=== PATIENT | female | born 1955 | race Caucasian/White ===

== ENCOUNTER 2024-05-24 20:35 | Emergency (ER) | payer MEDICAID, SELFPAY ==
[2024-05-24 20:55] VITALS: PULSE 80; RESP 18; O2SAT 99; BMI 32.3
[2024-05-24 21:02] VITALS: BP 196/76; PULSE 71; RESP 19; TEMP 36.7; O2SAT 96
--- NOTE | 2024-05-24 22:10 | PD.EDFALL ---
ED Fall Injury RME/HPI General Chief Complaint: Extremity Injury, Upper Stated Complaint: UPPER ARM PAIN Time Seen by Provider: 05/24/24 22:01 Arrival date/time: 05/24/24 20:35 RME / HPI RME / HPI Narrative: Patient is a 68-year-old female with past medical history of type 2 diabetes, hypertension, hyperlipidemia, GERD, and osteoporosis who was brought in by ambulance to the ED on 05/24/2024 with right elbow and right groin pain after a ground-level fall at home when she missed a step going down the 2 steps in the foyer at home and landed on her right elbow. She thinks she hit her head but not very hard and denies any head pain. Denies loss of consciousness. Patient denies any dizziness, lightheadedness, or presyncope. Patient denies taking any blood thinners. Patient was given fentanyl 100 mcg and Zofran 4 mg en route. Pain at this time is rated 7/10. Patient lives at home with her and is independent with all ADLs. Daughter is present at the bedside at the time of evaluation. MD complaint: fall Fall from: standing Place fall occurred: home Loss of consciousness: none Prolonged down time: no Symptoms prior to fall: none Context: tripped/slipped Location of injury - extremities: Right: elbow Severity: severe Severity scale (1-10): 7 Related Data Allergies Allergy/AdvReac Type Severity Reaction Status Date / Time No Known Allergies Allergy Verified 05/24/24 20:55 Review of Systems Review of Systems Systems Reviewed: All systems reviewed, normal except as documented Past Medical History Past Medical History Comments PMH COMMENT: Past Medical History: Type 2 diabetes, hyperlipidemia, hypertension, GERD, osteoporosis Family History: Stroke in brother, emphysema and lung cancer in father, ovarian cancer in mother Surgical History: Left hip open reduction internal fixation Social History: Denies history of smoking, denies current alcohol use, denies recreational drug use Current Medications: Lisinopril 20 mg qday, atorvastatin 40 mg qday, glipizide 10 mg qday, omeprazole 40 mg qday, calcium supplement (Source: Patient written medication list) Allergies: No known drug allergies ED Exam Narrative Physical exam: Physical Exam General: Awake and in no acute distress. Conversational and non-toxic appearing. HEENT: Normocephalic, atraumatic, mucous membranes moist. Heart: Regular rate and rhythm, no murmurs. Lungs: Clear to auscultation with no wheezing or crackles. Abdomen: Soft, nondistended, nontender, positive bowel sounds. ?No guarding or rebound tenderness. Neurologic: Alert and oriented x3, no gross neurological deficit, and patient able to move all 4 extremities. No loss of sensation in the right elbow, forearm, or hand. Extremities: Right arm is in a sling. Right elbow with deformity laterally. Right shoulder is adducted and internally rotated. Cannot extend forearm secondary to pain. No tenderness to palpation of right shoulder. Skin: Early blue colored bruising right lateral elbow. Course Quality Measures none Orders Category Date Time Status Splint / Immobilizer STAT Care 05/25/24 02:[address] cervical spine wo con Stat Exams 05/24/24 22:[address] head/brain wo con Stat Exams 05/24/24 22:[address] pelvis wo con Stat Exams 05/25/24 00:11 Taken XR elbow comp RT min 3V Stat Exams 05/24/24 22:11 Completed XR forearm RT 2V Stat Exams 05/25/24 00:03 Taken XR hip BI w pelvis 3-4V Stat Exams 05/24/24 22:11 Completed XR humerus RT min 2V Stat Exams 05/25/24 00:02 Taken CBC Stat Lab 05/25/24 00:40 Completed CMP [Comprehensive Metabolic Panel] Stat Lab 05/25/24 00:40 Completed Morphine Inj Med 05/24/24 23:11 Discontinued 2 mg IVP X1 ONE Vital Signs Vital signs: Vital Signs Temperature 98.1 F 05/24/24 21:02 Pulse Rate 71 05/24/24 21:02 Respiratory Rate 19 05/24/24 21:02 Blood Pressure 196/76 H 05/24/24 21:02 Pulse Oximetry (%) 96 05/24/24 21:02 Oxygen Delivery Method Room Air 05/24/24 21:02 Procedures -ED Splint Fabrication: Pre-Fabricated Type: Posterior Elbow (Long posterior splint) Reason for Splint: Optimal Positioning and Support Joint/Muscle Site condition: Bruised and Edematous Circulation Distal to Splint: Yes Movement Distal to Splint: Yes Senation Distal to Splint: Yes Tolerance: Tolerates Well Fall Patient data External records reviewed:: EMS form Clinical information provided by:: patient and family Social determinants that could affect healthcare access:: none Patient has the following chronic illnesses:: As above How is presenting disease/condition affected by chronic disease/condition?: uneffected by Evaluation data The following diagnostics were reviewed and interpreted by me:: lab results and radiology exam(s) Lab and/or radiology exams considered but not ordered:: CT lumbar spine Interpretation Summary: CT brain head without contrast Findings: No significant ventricular enlargement. Intra-axial or extra-axial hemorrhage density is not seen. No mass effect or midline shift Basal cisterns are not remarkable. Fourth ventricle is midline. Cranial vault intact. Impression: Negative for acute hemorrhage, mass effect or midline shift CT cervical spine without contrast Findings: Axial sections demonstrate intact base of the skull. C1 exhibit satisfactory relationship to the odontoid. No acute cervical vertebral body fracture seen. Alignment posterior spinous processes satisfactory. Acute sphenoid sinusitis Impression: No acute cervical fracture. X-Ray right elbow 3 views FINDINGS: Acute supracondylar fracture distal humerus On the lateral view 4 mm offset of the main fracture fragments No elbow dislocation IMPRESSION: Acute supracondylar fracture distal humerus. X-Ray bilateral hips, AP pelvis, 5 views FINDINGS: Severe osteopenia Old healed left hip fracture Shaft of left femur are intact Subtle radiolucencies in the intertrochanteric region right hip Old appearing fracture left inferior pubic ramus. Clinical correlation advised IMPRESSION: Recommend CT scan pelvis right hip follow-up to exclude intertrochanteric fracture right hip CT scan of the pelvis without intravenous contrast. Findings: Osteopenia. There is no acute fracture or malalignment. No joint effusion is seen. Vascular calcifications. Chronic healed left pelvic fractures. Chronic healed left femoral fracture. Left femoral hardware noted, no evidence of hardware loosening or failure. The uterus and ovaries are within normal limits. Bilateral perinephric fat stranding. Impression: 1. No fracture or dislocation. 2. Osteopenia. Consider correlation with DEXA scan. 3. Bilateral perinephric fat stranding, consider medical renal disease in the differential diagnosis. Medications / Prescriptions Medications or Prescriptions considered but not ordered:: None Medication administrations:: Medication Administration History Discontinued Medications Morphine Sulfate (Morphine Sulf Inj 10 Mg/Ml Vial) 2 mg IVP X1 ONE Stop: 05/24/24 23:12 Last Admin: 05/24/24 23:15 Dose: 2 mg Documented By: RC ^ Consultations Consultation(s) initiated? (list below): Yes Consultation #1 (Physician, Specialty, Details): 01:53 Orthopedic Surgery, Dr. Alcala contacted regarding case and he reports he does not perform this type of surgery. Patient is to be either transferred or discharged with follow up to PCP for Orthopedic referral. Consultation #2 (Physician, Specialty, Details): 02:10 Will attempt to consult [facility] Orth[facility] as patient states that with her insurance she has to stay in the [facility] network. 03:06 Made contact with [facility] transfer [place], they stated will call back. 03:[address] [facility] [address] Fowler called back and recommended trauma service as he does not do humerus surgery. Will try with [facility]. 04:25 [facility] and the [facility] called back and Orthopedic on-call Dr. Gutiérrez stated that Orthopedic Trauma on-call, Dr. Mosqueda, will need to be contacted after 6 am. Diagnosis Fall Differential Diagnosis: other (supracondylar fracture of distal humerus) Most likely diagnosis given after review of the tests above:: supracondylar fracture of distal humerus Admission Indicated Admission indicated?: not indicated Explain why admission is indicated or not indicated:: Patient will not undergo surgery here. Will be referred to another Orthopedic per PCP for recommendations regarding surgery. Admission Request Was there a request for admission?: No Disposition Plan Disposition Plan: Discharge Discharge Attestation Discharge Attestation: The patient and all family members were given an opportunity to ask questions and understood the discharge instructions. Discharge instructions specifically effects, indications for sooner follow up or return to the emergency department, and the expected course of current diagnosis. Patient condition: Stable Discharge Plan Plan Disposition Comment: Stable at signout Prescriptions/Referrals Referrals: No Primary/Family,Physician [Referring Provider] - In 1 week Problem List Clinical Impression: Closed supracondylar fracture of elbow Patient/Caregiver Discharge Instructions Print Language: Angolan Attestation Attestation I, Dr. Leyva, was present for the entire physical and history for this patient. I did my exam on the patient as well thank reviewed all the x-rays, the plan, discussions with management and reporting process consultant, reviewed the note and agree.
--- NOTE | 2024-05-24 22:11 | XR_ITS ---
Examination: Bilateral hips, AP pelvis, 5 views Technique: AP, lateral views both hips, AP pelvis, 5 views Exam date and time: May 24, 2024 at 11:26 PM INDICATIONS: Ground-level fall today with injury to the left, hip pain. FINDINGS: Severe osteopenia Old healed left hip fracture Shaft of left femur are intact Subtle radiolucencies in the intertrochanteric region right hip Old appearing fracture left inferior pubic ramus. Clinical correlation advised IMPRESSION: Recommend CT scan pelvis right hip follow-up to exclude intertrochanteric fracture right hip
--- NOTE | 2024-05-24 22:11 | XR_ITS ---
Examination: Right elbow 3 views Technique: Elbow AP, oblique, lateral 3 views Exam date and time: M INDICATIONS: Ground-level fall today with injury to the elbow, elbow pain. FINDINGS: Acute supracondylar fracture distal humerus On the lateral view 4 mm offset of the main fracture fragments No elbow dislocation IMPRESSION: Acute supracondylar fracture distal humerus.
--- NOTE | 2024-05-24 22:23 | XR_ITS ---
Examination: CT brain head without contrast. 2-D sagittal coronal reconstructions Date and time of exam:May 24, 2024 11:22 PM INDICATIONS: Ground-level fall today with injury to the head, head pain CTDI: vol (mGy):48 DLP: (mGycm):1033 Technique: Multiple CT axial sections of the brain have been obtained, 5 mm slice thickness. Contrast has not been administered. 2-D sagittal, coronal reconstructions have been obtained Low dose protocols were performed. One or more of the following dose reduction techniques were used; automated exposure control, adjustment of the mA and/or KV according to patient size, use of iterative reconstruction technique. Findings: No significant ventricular enlargement. Intra-axial or extra-axial hemorrhage density is not seen. No mass effect or midline shift Basal cisterns are not remarkable. Fourth ventricle is midline. Cranial vault intact. Impression: Negative for acute hemorrhage, mass effect or midline shift
--- NOTE | 2024-05-24 22:23 | XR_ITS ---
Examination: CT cervical spine without contrast 2-D sagittal reconstructions 2-D coronal reconstructions 3-D reconstructions. Exam date and time:May 24, 2024 11:20 PM INDICATIONS: Ground-level fall today with injury to the neck, neck pain CTDI:vol (mGy) 13.56 DLP: (mGycm) 350 Technique: Multiple 2 mm axial sections of the cervical spine have been obtained. The coronal and sagittal reconstructions have been obtained. 3-D reconstructions have been obtained. Low dose protocols were performed. One or more of the following dose reduction techniques were used; automated exposure control, adjustment of the mA and/or KV according to patient size, use of iterative reconstruction technique. Findings: Axial sections demonstrate intact base of the skull. C1 exhibit satisfactory relationship to the odontoid. No acute cervical vertebral body fracture seen. Alignment posterior spinous processes satisfactory. Acute sphenoid sinusitis Impression: No acute cervical fracture.
[2024-05-24] MEDS: MORPHINE SULF INJ 10 MG/ML VIAL 2 MG IVP (23:15)
[2024-05-24 23:53] VITALS: BP 159/76; PULSE 81; RESP 18; O2SAT 97
--- NOTE | 2024-05-25 00:02 | XR_ITS ---
Examination: Humerus 2 views right Technique: Humerus, AP lateral 2 views Date and time of exam: May 25, 2024 at 0127 hours INDICATIONS: Patient fell tonight with injury to the arm, arm pain FINDINGS: Acute supracondylar fracture distal humerus No significant displacement IMPRESSION: Acute supracondylar fracture distal humerus
--- NOTE | 2024-05-25 00:03 | XR_ITS ---
Examination: Forearm, right, 2 views. Technique: Forearm, AP, lateral 2 views Date and time of exam: May 25, 2024 at 0127 hours INDICATIONS: Patient fell today with injury to the forearm, forearm pain. FINDINGS: Acute supracondylar fracture distal humerus Radius ulna appear intact IMPRESSION: Acute supracondylar fracture distal humerus
--- NOTE | 2024-05-25 00:11 | XR_ITS ---
Examination: CT pelvis without intravenous contrast. 2-D sagittal and coronal reconstructions. Date and time of exam:May 25, 2024 at 0022 hours INDICATIONS: Ground-level fall last evening with hip pain CTDI: vol (mGy) :10.41 DLP: (mGycm) : 447 Technique: Multiple 3 mm axial sections of the pelvis have been obtained with the 64 slice high resolution scanner. 2-D sagittal and coronal reconstructions. Low dose protocols were performed. One or more of the following dose reduction techniques were used; automated exposure control, adjustment of the mA and/or KV according to patient size, use of iterative reconstruction technique. Findings: Severe osteopenia No right hip fracture or dislocation Old healed fracture proximal left femur Iliac bones Coronal image 114, actually mage 149 demonstrate fracture right superior pubic ramus, which may be acute IMPRESSION: No acute hip fracture Nondisplaced fracture right superior pubic ramus which may be acute , Recommend follow-up imaging
--- NOTE | 2024-05-25 01:18 | PRELIM_ITS ---
CT scan of the pelvis without intravenous contrast. Axial sections with sagittal and coronal reformats were obtained May 25, 2024 at 0024 hours Clinical History: Ground-level fall, rule out right hip fracture. Comparison: None. Findings: Osteopenia. There is no acute fracture or malalignment. No joint effusion is seen. Vascular calcifications. Chronic healed left pelvic fractures. Chronic healed left femoral fracture. Left femoral hardware noted, no evidence of hardware loosening or failure. The uterus and ovaries are within normal limits. Bilateral perinephric fat stranding. Impression: 1. No fracture or dislocation. 2. Osteopenia. Consider correlation with DEXA scan. 3. Bilateral perinephric fat stranding, consider medical renal disease in the differential diagnosis. Report Electronically Signed By: Ulises Umanzor 05/25/2024 1:17:07 AM [EST]
[2024-05-25 01:28] LABS: Basophils % (Auto) 0 % (0-2.5); Eosinophils # (Auto) 0.1 Thou/mm3 (0.0-0.5); Eosinophils % (Auto) 1 % (0-10); Hematocrit 35.9 % (36.0-46.0); Hemoglobin 12.6 g/dL (12.0-16.0); Immature Granulocytes % (Auto) 1 % (0-0); Immature Granulocytes Auto 0.07 Thou/mm3 (0.00-0.00); Lymphocytes # (Auto) 3.1 Thou/mm3 (1.0-4.8); Lymphocytes % (Auto) 21 % (10-50); Mean Corpuscular HGB Conc 35.1 g/dl (31.0-37.0); Mean Corpuscular Hemoglobin 27.9 pg (25.0-35.0); Mean Corpuscular Volume 79 fL (80-100); Monocytes # (Auto) 0.8 Thou/mm3 (0.0-0.8); Monocytes % (Auto) 6 % (0-12); Neutrophils # (Auto) 10.6 Thou/mm3 (1.8-7.7); Neutrophils % (Auto) 72 % (37-80); Nucleated Red Blood Cell % 0 /100 WBC (0); Platelet Count 223 Thou/mm3 (140-440); RDW Standard Deviation 39.3 fL (36.4-46.3); Red Blood Count 4.52 Miln/mm3 (4.00-5.20); White Blood Count 14.7 Thou/mm3 (3.6-11.0)
[2024-05-25 01:29] LABS: Alanine Aminotransferase 24 U/L (10-49); Albumin, Serum 3.2 gm/dL (3.4-4.8); Albumin/Globulin Ratio 1.2 (1.2-2.2); Alkaline Phosphatase 86 U/L (46-116); Anion Gap 7 (7-16); Aspartate Amino Transferase 24 U/L (0-34); BUN/Creatinine Ratio 20 Ratio (12-20); Bilirubin,Total 0.8 mg/dL (0.3-1.2); Blood Urea Nitrogen 22 mg/dL (9-23); Calcium 8.5 mg/dL (8.3-10.6); Calcium (Corrected) 9.1 mg/dL (8.5-10.1); Chloride 108 mMol/L (98-107); Creatinine (Component) 1.1 mg/dL (0.6-1.3); Estimated Creatinine Clearance 57.1 mL/min (>60); Globulin 2.7 gm/dL (2.3-3.5); Glucose 325 mg/dL (74-106); Osmolality,Calculated 293 (275-295); Potassium 4.1 mMol/L (3.4-5.1); Sodium 139 mMol/L (136-145); Total Protein 5.9 gm/dL (5.7-8.2); eGFR 55 See Note
[2024-05-25 01:42] VITALS: BP 168/83; PULSE 76; RESP 17; TEMP 36.9; O2SAT 96
--- NOTE | 2024-05-25 03:23 | PC.NURSE ---
COUNTS INCLUDE 234 BEDS AT THE [facility] CONTACTED FOR POSSIBLE ORTHO TRANSFER, SPOKE WITH JENNIFER, PACKET FAXED AND IMAGES PUSHED THROUGH [employer]
--- NOTE | 2024-05-25 04:11 | PRELIM_ITS ---
RADIOGRAPHS OF THE RIGHT FOREARM (2 VIEWS): May 25, 2024 0127 hours Clinical History: Ground level fall today, landed on elbow, r/o fracture Comparison: No prior study is available for comparison. Findings: The bones are osteopenic. There is an acute mildly displaced fracture of the supracondylar region of the humerus. The other visualized bones and joints are intact. The soft tissues are unremarkable. IMPRESSION: Acute mildly displaced fracture of the supracondylar region of the humerus. Report Electronically Signed By: Margarita Mcmanus 05/25/2024 4:11:21 AM [EST]
--- NOTE | 2024-05-25 04:12 | PRELIM_ITS ---
Radiographs of the right humerus (2 views). May 25, 2024 0127 hours Clinical history: Ground level fall today, landed on elbow, r/o fracture Comparison: No prior study is available for comparison. Findings: The bones are osteopenic. There is an acute mildly displaced fracture of the supracondylar region of the humerus. The other visualized bones and joints are intact. The soft tissues are unremarkable. IMPRESSION: Acute mildly displaced fracture of the supracondylar region of the humerus. Report Electronically Signed By: Margarita Mcmanus 05/25/2024 4:11:29 AM [EST]
[2024-05-25 05:03] VITALS: BP 161/89; PULSE 88; RESP 16; TEMP 36.8; O2SAT 96
--- NOTE | 2024-05-25 05:13 | PC.NURSE ---
pt updated on plan of care, informed pt waiting for callback from [facility] around 6am.
--- NOTE | 2024-05-25 07:08 | EDNOTE_ITS ---
Emergency Room Addendum <Hillary Hameed - Last Filed: 05/25/24 12:24> Addendum Narrative: 0600: Care assumed from resident Ana Leavitt working with the previous shift emergency physician Dr. Venegas. Past medical, surgical, social and family history reviewed. Vitals and home medications reviewed. I will assume the care of the patient at this time, pending transfer. Please refer to the emergency department record for history and examination from initial visit.? Physical exam by me shows patient under no acute distress at this time. 0750: D/W [facility]. Recommendations per Dr. Mosqueda are to obtain CT elbow. Patient then to follow up in his office on May 30. CT right elbow ordered. 1200: Patient was signed out to Dr. Venegas. Past medical, surgical, social and family history reviewed. Vitals and home medications reviewed. Results and treatment plan discussed. They will assume the care of the patient at this time and will follow the patient. 1218: Patient will be discharged to follow up as an outpatient on Wednesday and patient will call today to confirm appointment. Patient is stable and pain is controlled for discharge. <Abi Cesar MD - Last Filed: 05/25/24 07:55> Addendum Narrative: 0600: Care assumed from resident Ana Leavitt working with the previous shift emergency physician Dr. Venegas. Past medical, surgical, social and family history reviewed. Vitals and home medications reviewed. I will assume the care of the patient at this time, pending transfer. Please refer to the emergency department record for history and examination from initial visit.? Physical exam by me shows patient under no acute distress at this time. 0750: D/W [facility]. Recommendations per Dr. Mosqueda are to obtain CT elbow. Patient then to follow up in his office on May 30. CT right elbow ordered.
--- NOTE | 2024-05-25 07:52 | XR_ITS ---
Examination: CT right elbow, without contrast. 2-D sagittal reconstructions. 2-D coronal reconstructions. 3-D reconstructions. Date and time of exam:May 25, 2024 0829 hours INDICATIONS: Patient fell today with injury to the elbow, elbow pain CTDI: vol (mGy):25.7 DLP: (mGycm):623 Technique: Multiple 1.25 mm axial sections of the right elbow have been obtained. 2-D sagittal and coronal reconstructions have been obtained. 3-D reconstructions have been obtained. Low dose protocols were performed. One or more of the following dose reduction techniques were used; automated exposure control, adjustment of the mA and/or KV according to patient size, use of iterative reconstruction technique. Findings: Acute supracondylar fracture distal humerus, sagittal image 25, no significant displacement Ulnar radius intact Elbow effusion No foreign body IMPRESSION: Acute supracondylar fracture distal humerus
--- NOTE | 2024-05-25 08:10 | PC.CM ---
Addendum entered by Nabila Love RN 05/25/24 13:51: I received a call back from [facility] from [facility]. She states Dr. Mosqueda reviewed the CT of the elbow that was done today and he states patient can be seen as out patient at [facility]. Patient can call and made an appointment for Wednesday. phone # [phone]. I updated Christopher charge nurse. Addendum entered by Nabila Love RN 05/25/24 13:21: I spoke to [facility] and I faxed over the results from the CT of the elbow. Addendum entered by Nabila Love RN 05/25/24 08:27: I spoke to Dr. Katz and she and she already was aware of the plan. She was going to order the CT of the elbow. Original Note: I received a call from [facility] transfer center at [facility]. She states Dr. Mosqueda reviewed information and he is recommending for us to get a CT of the elbow and patient can be seen as out patient at [facility]. She can call and made an appointment for Wednesday. phone # [phone]. I updated Christopher charge nurse.
[2024-05-25 08:36] VITALS: BP 133/83; PULSE 81; RESP 18; TEMP 37.1; O2SAT 95
[2024-05-25 10:35] VITALS: BP 172/79; PULSE 82; RESP 16; TEMP 36.9; O2SAT 95
[2024-05-25 11:57] VITALS: BP 167/82; PULSE 81; RESP 16; TEMP 36.7; O2SAT 97
[2024-05-25] MEDS: ONDANSETRON INJ 2 MG/ML INJ 2 ML 4 MG IV (12:13)
[2024-05-25] MEDS: MORPHINE SULF INJ 10 MG/ML VIAL 4 MG IVP (12:14)
== END 2024-05-25 12:40 | disposition home or self-care (01) ==
PROVIDERS: Student in an Organized Health Care Education/Training Program; Emergency Provider Emergency Medicine; PCP Family Medicine
DX: S42.411A Displaced simple supracondylar fracture without intercondylar fracture of right humerus, initial encounter for closed fracture (principal); R10.30 Lower abdominal pain, unspecified; J32.3 Chronic sphenoidal sinusitis; S09.90XA Unspecified injury of head, initial encounter; M81.0 Age-related osteoporosis without current pathological fracture; E78.5 Hyperlipidemia, unspecified; I10 Essential (primary) hypertension; E11.9 Type 2 diabetes mellitus without complications; W18.30XA Fall on same level, unspecified, initial encounter; Z79.84 Long term (current) use of oral hypoglycemic drugs; Z79.899 Other long term (current) drug therapy
CPT/HCPCS: 29105; 36415; 70450; 72125; 72192; 73060; 73080; 73090; 73200; 73522; 80053; 85025; 96374; 96375; 96376; 99284; J2270; J2405